=== PATIENT | male | born 1980 | race Caucasian/White ===

== ENCOUNTER 2018-09-16 19:39 | Inpatient (IN) | payer MEDICAID ==
[~2018-09-16] VITALS: Ht 167.6 cm; Wt 65.8 kg
[2018-09-16] MEDS ORDERED: SODIUM CHLORIDE 0.9% 1,000 ML IV ONE ×2 (20:06→22:38)
[2018-09-16] MEDS ORDERED: ONDANSETRON HCL 4MG/2ML INJ IV STA (20:06)
[2018-09-16] MEDS ORDERED: MORPHINE SULFATE 4 MG/ML CPJ (NOT FOR IM USE) IV STA (20:06)
[2018-09-16] MEDS ORDERED: FAMOTIDINE 20MG/2ML VIAL IV ONE (20:15)
[2018-09-16 20:47] LABS: BASOPHILS % 0.7 % (0.0-2.0); EOSINOPHILS % 0.8 % (0.0-5.0); HEMATOCRIT. 43.1 % (42.0-52.0); HEMOGLOBIN. 14.7 g/dL (14.0-18.0); LYMPHOCYTES % 14.9 % (20.0-50.0); MEAN CORPUSCULAR HEMOGLOBIN 31.6 pg (28.0-32.0); MEAN CORPUSCULAR VOLUME 92.5 fL (80.0-94.0); MEAN PLATELET VOLUME 9.9 fl (7.4-10.4); NEUTROPHILS % 77.6 % (40.0-76.0); PLATELET 67 x1000/uL (130-400); RED BLOOD CELL COUNT 4.66 mill/uL (4.7-6.1); RED CELL DISTRIBUTION WIDTH 14.8 % (11.6-14.6)
[2018-09-16 20:50] LABS: CHLORIDE 108 mEq/L (98-107)
[2018-09-16 20:53] LABS: PARTIAL THROMBOPLASTIN TIME 23.4 sec (23.4-31.0); PROTHROMBIN TIME 10.6 sec (9.6-11.0)
[2018-09-16 20:55] LABS: ETHANOL BLOOD < 10 mg/dL
[2018-09-16] MEDS ORDERED: METOCLOPRAMIDE HCL 10MG/2ML VIAL IV ONE ×2 (22:30→22:45)
[2018-09-17] MEDS ORDERED: ONDANSETRON HCL 4MG/2ML INJ IV PRN (08:15)
[2018-09-17] MEDS ORDERED: MORPHINE SULFATE 2 MG/ML CPJ (NOT FOR IM USE) IV PRN (08:15)
[2018-09-17 08:20] VITALS: BP 108/65
[2018-09-17] MEDS: DEXT 5%/0.45% NACL 1000ML 1,000 ML IV SCH ×2 (09:19→18:21)
[2018-09-17 09:30] VITALS: BP 108/65
[2018-09-17 12:00] VITALS: BP 111/70
[2018-09-17 16:00] VITALS: BP 103/56
[2018-09-17 20:00] VITALS: BP 120/79
[2018-09-18] MEDS: DEXT 5%/0.45% NACL 1000ML 1,000 ML IV SCH (04:38)
[2018-09-18 08:00] VITALS: BP 108/75
== END 2018-09-18 09:34 | disposition left against medical advice (07) | DRG 282 ==
LOC: ER 19:39 → 6EST 09-17 01:47 → EDBEDREQ 09-17 02:03 → EDBEDREQTM 09-17 02:03 → ENRESERV 09-17 05:18
PROVIDERS: ADMIT Hospitalist; ATTEND Hospitalist
DX: K85.90 Acute pancreatitis without necrosis or infection, unspecified (principal); F20.9 Schizophrenia, unspecified; F31.9 Bipolar disorder, unspecified; Z53.21 Procedure and treatment not carried out due to patient leaving prior to being seen by health care provider; E11.9 Type 2 diabetes mellitus without complications; Z91.19 Patient's noncompliance with other medical treatment and regimen
CPT/HCPCS: 36415; 71045; 74176; 80320; 83605; 83880; 84484; 93005; 96374; 96375; 99285; J2270; J2405; J2765; J3490; J7030; G0480